=== PATIENT | female | born 1980 | race Caucasian/White ===

== ENCOUNTER 2022-01-31 23:01 | Emergency (ER) | payer SELFPAY | END 2022-02-01 01:56 | disposition home or self-care (01) | LOC: ER1 23:01 | DX: R05.9 Cough, unspecified (principal); R51.9 Headache, unspecified; F17.210 Nicotine dependence, cigarettes, uncomplicated; Z20.822 Contact with and (suspected) exposure to COVID-19 | CPT/HCPCS: 0240U; 71045; 99284 ==

== ENCOUNTER 2022-02-02 16:01 | Emergency (ER) | payer SELFPAY | END 2022-02-02 19:20 | disposition home or self-care (01) | LOC: ER1 16:01 | DX: U07.1 COVID-19 (principal); R03.0 Elevated blood-pressure reading, without diagnosis of hypertension; F17.200 Nicotine dependence, unspecified, uncomplicated | CPT/HCPCS: 0240U; 99284 ==